=== PATIENT | male | born 1990 | race African-American/Black ===

== ENCOUNTER 2016-09-18 12:58 | Inpatient (IN) | payer MEDICAID ==
[~2016-09-18] VITALS: Ht 170.2 cm; Wt 64.6 kg
[2016-09-18 15:29] LABS: UA SPECIFIC GRAVITY 1.015 (1.005-1.035); microscopic required? YES; urine erythrocyte TRACE (NEGATIVE)
[2016-09-18 15:50] LABS: BASOPHIL % 0.3 % (0-2); PLATELET COUNT 248 x10^3mcL (130-400)
[2016-09-18 16:08] LABS: ALBUMIN 3.6 g/dL (3.4-5.0); ALKALINE PHOSPHATASE 88 U/L (46-116); ALT/SGPT 27 U/L (16-63); AST/SGOT 22 U/L (15-37); BILIRUBIN TOTAL 0.2 mg/dL (0.20-1.00); CALCIUM 7.9 mg/dL (8.5-10.1); CARBON DIOXIDE 23.4 mmol/L (21-32); CHLORIDE SERUM 102 mmol/L (98-107); CREATININE SERUM 1.2 mg/dL (0.7-1.3); GFR1 > 60 mL/min; GLUCOSE SERUM 72 mg/dL (74-106); POTASSIUM SERUM 3.7 mmol/L (3.5-5.1); SODIUM SERUM 141 mmol/L (136-145); TOTAL PROTEIN, SERUM 6.9 g/dL (6.4-8.2)
[2016-09-18 16:08] LABS: AMPHETAMINE QUAL UR NONE DETECTED (NEG <=1000)
[2016-09-18 19:31] VITALS: BP 145/87
[2016-09-18 19:41] LABS: FREE T4 0.91 ng/dL (0.76-1.46); FREE THYROXINE INDEX 1.8 ug/dL (1.4-4.5); T4(THYROXINE) 5.2 ug/dL (4.7-13.3)
[2016-09-18 19:42] LABS: CHOLESTEROL/HDL RATIO 2.3
[2016-09-18 20:37] LABS: T3 TOTAL 0.81 ng/mL
[2016-09-19 06:03] LABS: BASOPHIL % 0.4 % (0-2); PLATELET COUNT 218 x10^3mcL (130-400); RED CELL DISTRIBUTION WIDTH 12.6 % (11.5-14.5)
[2016-09-19 06:14] LABS: CALCIUM 7.9 mg/dL (8.5-10.1); CHLORIDE SERUM 106 mmol/L (98-107); CREATININE SERUM 1.1 mg/dL (0.7-1.3); GFR1 > 60 mL/min; GLUCOSE SERUM 91 mg/dL (74-106); MAGNESIUM 1.5 mg/dL (1.8-2.4); PHOSPHOROUS 3.5 mg/dL (2.5-4.9); POTASSIUM SERUM 4.7 mmol/L (3.5-5.1); SODIUM SERUM 139 mmol/L (136-145)
[2016-09-19 22:13] VITALS: BP 150/99
[2016-09-20 05:18] VITALS: BP 145/91
[2016-09-20 06:15] LABS: BASOPHIL % 0.2 % (0-2); PLATELET COUNT 217 x10^3mcL (130-400); RED CELL DISTRIBUTION WIDTH 12.7 % (11.5-14.5)
[2016-09-20 06:34] LABS: CALCIUM 8.2 mg/dL (8.5-10.1); CARBON DIOXIDE 28.1 mmol/L (21-32); CHLORIDE SERUM 107 mmol/L (98-107); CREATININE SERUM 0.9 mg/dL (0.7-1.3); GFR1 > 60 mL/min; GLUCOSE SERUM 110 mg/dL (74-106); PHOSPHOROUS 2.6 mg/dL (2.5-4.9); POTASSIUM SERUM 4.2 mmol/L (3.5-5.1); SODIUM SERUM 141 mmol/L (136-145)
[2016-09-20 09:15] VITALS: BP 145/90
[2016-09-20] MEDS ORDERED: CEL20 PO (12:11)
[2016-09-20] MEDS ORDERED: ZES5 PO (12:11)
[2016-09-20 12:53] VITALS: BP 145/90
== END 2016-09-20 13:26 | disposition home or self-care (01) | DRG 384 ==
LOC: ED 12:58 → DU 17:57 → MU 09-20 06:49
PROVIDERS: Emergency Medicine; ADMIT Family Medicine
PROC: 0HQ7XZZ Repair Abdomen Skin, External Approach (ICD-10-PCS; principal; 2016-09-18)
DX: S31.111A Laceration without foreign body of abdominal wall, left upper quadrant without penetration into peritoneal cavity, initial encounter (principal); N17.0 Acute kidney failure with tubular necrosis; G92 Toxic encephalopathy; F10.129 Alcohol abuse with intoxication, unspecified; S60.812A Abrasion of left wrist, initial encounter; R45.851 Suicidal ideations; X78.1XXA Intentional self-harm by knife, initial encounter; Y93.89 Activity, other specified; Y92.018 Other place in single-family (private) house as the place of occurrence of the external cause; Z68.28 Body mass index [BMI] 28.0-28.9, adult
CPT/HCPCS: 80307; 82962; 83880; 84439; 90715; G0480; J0690; J2001; J2060; J2270; J2405; J3475; J7030; Q9967